=== PATIENT | female | born 1960 | race Caucasian/White ===

== ENCOUNTER → 2019-04-02 | Outpatient (CLI) | payer OTHER, SELFPAY ==
[2019-04-02 09:01] VITALS: BMI 27.0
[2019-04-02 12:54] LABS: Anion Gap 7 (5-15); BUN 15 mg/dL (7-18); BUN/Creat Ratio 17.2 RATIO (10-20); Chloride 103 mmol/L (98-107); Creatinine, Serum 0.87 mg/dL (0.55-1.02); EST Glomerular Filtration Rate 71 mL/min (>60); Est Glom Filt Rate - Afr Amer 86 mL/min (>60); Glucose 109 mg/dL (74-106); Potassium 3.6 mmol/L (3.5-5.1); Sodium Level 140 mmol/L (136-145)
== END | disposition home or self-care (01) ==
LOC: BIMLAB 09:34
PROVIDERS: PCP Internal Medicine; Visit Provider Internal Medicine
DX: I10 Essential (primary) hypertension (principal)
CPT/HCPCS: 36415; 80048

== ENCOUNTER → 2019-04-15 | Outpatient (CLI) | payer OTHER, SELFPAY ==
[2019-04-15 09:42] VITALS: BMI 27.0
--- NOTE | 2019-04-15 09:50 | RAD_ITS ---
STUDY: X-RAY - LEFT SHOULDER REASON FOR EXAM: Left shoulder pain for one year, limited range of motion. TECHNIQUE: 3 view(s) of the shoulder. COMPARISON: None. FINDINGS: Normal glenohumeral articulation. Normal acromioclavicular joint. Normal acromion. There is a chondroid series tumor with calcifications in the humeral head measuring approximately 1.8 cm in length, most suggestive of an enchondroma. The soft tissue structures are unremarkable. Normal visualized pulmonary apex. 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 Otherwise, unremarkable x-ray examination of the left shoulder. Electronically Signed: Rasta James MD at 10:26 EDT Tel , Service support ,
== END | disposition home or self-care (01) ==
LOC: HPRAD 09:49
PROVIDERS: Family Provider Internal Medicine; PCP Internal Medicine; Referring Provider Orthopaedic Surgery; Visit Provider Orthopaedic Surgery
DX: M25.512 Pain in left shoulder (principal)
CPT/HCPCS: 73030

== ENCOUNTER 2019-05-21 09:00 | Outpatient (RCR) | payer OTHER, SELFPAY ==
[2019-04-15 09:42] VITALS: BMI 27.0
--- NOTE | 2019-04-21 09:36 | HP.PTEVAL ---
Patient's Visit Information MADDY BRAGG is a 58 year old F referred to Physical Therapy by Vale Greer DO with a diagnosis of L adhesive capsulitis. Date of Evaluation: 04/21/19 Physical Therapist: Luis Dick PT, ATC - Visit Plan Frequency: 2-3x /Week Duration: 4-6 Weeks Plan: Begin with an aquatic exercise program 2 times per week for 3 weeks, and then progress to land. Rx to consist of L shoulder PROM and mobs, stretching and strengthening (rot cuff), scap stab, UBE, and HEP - Subjective Findings: Pt reports her shoulder has been sore since 2017. Pt reports she was gardening at that time when she attempted to empty a really heavy basket. Pt reports she experienced severe pain at that time. Pt reports she went to her doctor at that time and was referred to an orthopedic surgeon and had an MRI with was negative for any tears. Pt reports she had PT and a cortisone injection which helped for about one year. The pain returned in August of 2018. Pt reports she just recently received another cortisone injection which has not helped. Pt is R hand dominant. No tingling or numbness at this time. Pt reports sleep difficulty secondary to pain. Pt reports she cant reach overhead, and has sig difficulty with washing her hair or applying deoderant to the opposite shoulder. 7/10 pain at rest, 10/10 pain at worst (pushing out of bed to get out of it) - Pain L shoulder pain Pain Intensity (Out of 10): 7 Pain Intensity Range: 10 - Objective Neuro: B UE sensation is WNL to light touch. B bicepital reflex= 2/3. Palpation: Pt is very tender throughout the distribution of the supraspinatus. Minor deformity of the L pec major. ROM: R shoulder flex= 170, abd= 160, ER= 65, IR WNL; L shoulder flex= 75, abd= 55, ER= 15, IR moderately limited. MMT: R UE is 5/5 throughout. L shoulder is 4-/5 and painful in available range. Special test: pos empty can and HK impingement test - Goals Goal 1:: Decrease L shoulder pain x 50% to aid with sleep Goal Time Frame: 4-6 Weeks Goal 2:: Increase L shoulder abd and flex ROM x 40 degrees to aid with overhead lifting Goal Time Frame: 4-6 Weeks Goal 3:: Increase L shoulder strength x 1 grade to aid with IADL's Goal Time Frame: 4-6 Weeks Goal 4:: I with HEP Goal Time Frame: 4-6 Weeks - Rehabilitation Potential Physical Therapy Diagnosis: L shoulder pain, weakness, and limited ROM secondary to L shoulder adhesive capsulitis Rehabilitation Potential: Good - Anticipated Interventions Patient/Client Instruction: Educate patient on: Condition, Plan of Care For the Purpose of:: To improve self management Therapeutic Exercise to Include: Strength training, Postural training, Flexibilty training, In an aquatic setting, Passive ROM, Active ROM, Scapular Strength/Stabilization For the Purpose of:: To decrease pain, To increase ROM, To improve muscle performance and motor function Cryotherapy (ice pack, ice massage): Yes For the Purpose of:: To decrease pain Thank you for the opportunity to evaluate your patient. For Medicare and Medicare HMO plans, please review the plan of care and approve it. It will need to be FAXED BACK to us at [phone] for Medicare purposes. For Medicare only, by signing this I certify the plan of care. Please let me know if there are questions or concerns regarding this plan of care. Physician Signature: Date:
--- NOTE | 2019-05-21 09:52 | HP.PTDCSUM ---
HP - PT D/C Summary It has been my pleasure to treat MADDY BRAGG under orders from Vale Greer DO, for the diagnosis of L adhesive capsulitis for a total of 7 visit(s). Discharge Date: Please see the following information for a summary of their discharge status. - Subjective Subjective: Pt is very frustrated with lack of improvement. - Pain L shoulder pain Pain Intensity (Out of 10): 5 - Overall Improvement % Improvement: 7 - Objective Objective/Function: L shoulder pain ranges from 0-7/10. L shoulder ROM: flex= 90, abd= 70. L shoulder MMT: grossly 3+/5 in available range - Goals Goal 1:: Decrease L shoulder pain x 50% to aid with sleep Goal Progress: Not Progressing Goal 2:: Increase L shoulder abd and flex ROM x 40 degrees to aid with overhead lifting Goal 3:: Increase L shoulder strength x 1 grade to aid with IADL's Goal 4:: I with HEP - Plan Plan: Discontinue secondary to lack of progress, RTD - D/C Information If there are questions or concerns regarding this patient's physical therapy, please feel free to call me at [phone]. Thank you for the referral of this patient. Sincerely, Luis Dick, PT, ATC
== END 2019-05-21 19:00 | disposition home or self-care (01) ==
LOC: PT 09:00
PROVIDERS: Family Provider Internal Medicine; PCP Internal Medicine; Referring Provider Orthopaedic Surgery; Visit Provider Orthopaedic Surgery
DX: M75.02 Adhesive capsulitis of left shoulder (principal)
CPT/HCPCS: 97113; 97161; 97530

== ENCOUNTER → 2019-06-15 17:05 | Outpatient (CLI) | payer OTHER, SELFPAY ==
[2019-06-08 09:08] VITALS: BMI 27.0
--- NOTE | 2019-06-15 17:18 | MRI_ITS ---
STUDY: MRI LEFT SHOULDER REASON FOR EXAM: Left shoulder pain and decreased range of motion, injury almost 2 years ago. TECHNIQUE: Standardized fat and water weighted pulse sequences were obtained in all 3 orthogonal planes. COMPARISON: Radiograph 04/15/2019. FINDINGS: Normal supraspinatus tendon. Normal infraspinatus tendon. Normal subscapularis tendon. Normal teres minor tendon. Normal supraspinatus muscle. There is focal atrophy of the infraspinatus muscle (T2 axial images 10-13; proton density coronal images 13, 14), likely a sequelae of remote muscle tear. There is also mild edema in the proximal infraspinatus muscle (T2 coronal images 12, 13) suggestive of low-grade muscle strain. Normal subscapularis muscle. Normal teres minor muscle. Normal glenohumeral articulation. There is a well-defined chondroid series tumor in the humeral head (T2 coronal images 11-14) measuring approximately 2 cm in length and transverse dimensions without endosteal scalloping or bone edema and therefore likely an enchondroma. Normal biceps labral complex. Normal intracapsular long biceps tendon. Normal labrum. Normal capsulo- ligamentous complex. Normal acromioclavicular articulation. There is a Type II morphology (curved), with a neutral orientation. There is a trace of subacromial-subdeltoid bursal fluid. Normal visualized coracohumeral and coracoacromial ligaments. Normal deltoid muscle. Normal trapezius muscle. MRI/Upper Ext Joint Only(Routine) IMPRESSION: Focal atrophy of the infraspinatus muscle, likely a sequelae of remote muscle tear. Low-grade proximal infraspinatus muscle strain. Chondroid series tumor in the humeral head most suggestive of an enchondroma. Electronically Signed: Rasta James MD at 8:37 EDT Tel , Service support ,
== END ==
PROVIDERS: Family Provider Internal Medicine; PCP Internal Medicine; Referring Provider Orthopaedic Surgery; Visit Provider Orthopaedic Surgery
DX: D16.02 Benign neoplasm of scapula and long bones of left upper limb (principal); M25.512 Pain in left shoulder; G89.29 Other chronic pain
CPT/HCPCS: 73221

== ENCOUNTER → 2019-06-18 | Outpatient (CLI) | payer OTHER, SELFPAY ==
[2019-06-18 13:09] VITALS: BMI 27.0
[2019-06-18 14:43] LABS: T4 Free Direct 0.95 ng/dL (0.76-1.46); Thyroid Stim Hormone (TSH) 0.73 uIU/mL (0.358-3.74)
== END | disposition home or self-care (01) ==
LOC: LAB 13:44
PROVIDERS: Family Provider Internal Medicine; PCP Internal Medicine; Referring Provider Internal Medicine; Visit Provider Internal Medicine
DX: E04.1 Nontoxic single thyroid nodule (principal)
CPT/HCPCS: 36415; 84439; 84443

== ENCOUNTER → 2019-06-28 | Outpatient (CLI) | payer OTHER, SELFPAY ==
[2019-06-18 13:09] VITALS: BMI 27.0
--- NOTE | 2019-06-28 15:28 | US_ITS ---
STUDY: THYROID ULTRASOUND REASON FOR EXAM: Female, 58 years old. Nodule TECHNIQUE: Ultrasound evaluation of the thyroid was performed with real-time and static graham-scale imaging. COMPARISON: None. FINDINGS: RIGHT LOBE: The right lobe of the thyroid gland measures 5.1 x 1.9 x 1.9 cm. There is a heterogeneous echotexture. Within the right-sided thyroid there is inhomogeneous partially vascular nodule measuring 2.1 x 1.4 x 1.6 cm. There is a hypoechoic nodule measuring 1.3 x 1.2 x 1.2 cm. LEFT LOBE: The left lobe of the thyroid gland measures 5.4 x 1.5 x 1.5 cm. There is a heterogeneous echotexture. The left side thyroid gland there is a 6 x 5 x 3 mm nodule, 4 x 3 x 3 mm nodule 5 x 6 x 4 mm nodule. ISTHMUS: The isthmus measures 3 mm . The regional lymph nodes are normal. US/Thyroid IMPRESSION: Enlarged bilateral thyroid glands, thyromegaly. Upper pole Dominant inhomogeneous nodule right thyroid measuring 2.1 x 1.4 x 1.6 cm. Given the dominant appearance of this nodule and inhomogeneity recommend consideration for biopsy in the appropriate clinical setting. Otherwise well-circumscribed similar appearing hypoechoic nodules. Electronically Signed: Jenny Reyez MD at 18:14 EDT Tel , Service support ,
== END | disposition home or self-care (01) ==
LOC: US 15:26
PROVIDERS: Family Provider Internal Medicine; PCP Internal Medicine; Referring Provider Internal Medicine; Visit Provider Internal Medicine
DX: E04.1 Nontoxic single thyroid nodule (principal)
CPT/HCPCS: 76536

== ENCOUNTER → 2019-07-09 | Outpatient (CLI) | payer OTHER, SELFPAY ==
[2019-07-09 14:54] VITALS: BMI 27.0
--- NOTE | 2019-07-09 15:00 | ASPS_PTH ---
PATIENT: MADDY BRAGG LOC: [facility] U#:[id number] AGE/SX: 59/F ROOM: RE07/09/[address]: Dr. Dmitri Jason MD : 1960 BED: DIS: 07/09/2019 SPEC #: [id number] RECD: 07/09/19 15:32 STATUS: JOSE RAUL IVY #: [id number] TORIN: 07/09/19 15:[address]: Dmitri Jason DEPT: CYTOLOGY RECD BY: Nathalia Moser ENTERED: 07/12/19 08:23 SP TYPE: ASPIRATION OTHR DR: Dr. Angélica Murcia MD Tissues: Thyroid gland, NOS Procedures: Special Stain Group II Cytology Other HEADER OPERATION: Ultrasound guided fine needle aspiration, right thyroid PRE-OP DIAGNOSIS: Multinodular goiter TISSUE SUBMITTED: Fine needle aspiration, right thyroid DIAGNOSIS CYTOLOGY Right thyroid nodule, ultrasound-guided FNA (smears): Benign follicular nodule. Adequate for evaluation. See comment. SJ:rg 07/12/19 COMMENT Immediate cytologic evaluation to determine adequacy is not applicable. The findings are suggestive of adenomatoid colloid nodule with mild atypia, favor reactive. Correlation with clinical, radiologic findings and appropriate follow up are necessary. Case has been reviewed in consultation with Dr. Patten who concurs with the above diagnosis. IDC:AM CYTOLOGY STUDY Slides are reviewed. CYTOLOGY GROSS Received are 16 smears labeled with the patient's name and designated per the requisition as FNA right thyroid. Submitted for staining. /CC:cc 07/12/19 TC:5 CPT: 70009
== END | disposition home or self-care (01) ==
LOC: LABSPEC 15:44
PROVIDERS: Family Provider Internal Medicine; PCP Internal Medicine; Referring Provider Surgery; Visit Provider Surgery
DX: E04.2 Nontoxic multinodular goiter (principal)
CPT/HCPCS: 88161; 88313

== ENCOUNTER → 2019-12-23 13:16 | Outpatient (CLI) | payer OTHER, SELFPAY ==
[2019-09-15 17:34] VITALS: BMI 26.6
[2019-12-23 13:46] LABS: Absolute Lymphocyte Count 2.61 X10^3/uL (0.83-4.51); Basophil# 0.09 X10^3/uL; Basophil% 1.1 % (0-1); Eosinophil# 0.14 X10^3/uL; Eosinophils% 1.7 % (0-5); Hematocrit 42.3 % (37-47); Hemoglobin 14.2 g/dL (12.0-15.0); Lymphocyte # 2.61 X10^3/ul (4.0); Lymphocyte % 31.3 % (19-41); Mean Corp Hgb Conc 33.6 g/dL (32-36); Mean Corpuscular Hgb 30.1 pg (27.0-32.0); Mean Corpuscular Volume 89.6 fL (81-99); Mean Platelet Vol. 9.2 fl (6.2-12.0); Monocyte# 0.47 X10^3/uL; Monocyte% 5.6 % (0-10); NRBC Flagged by Analyzer 0 % (0-5); Neutrophil # 4.99 X10^3/uL (2.7-7.7); Neutrophil % 59.9 % (47-70); Platelet Count 254 K/mm3 (150-450); RBC Distribution Width CV 11.6 % (11.6-14.6); RBC Distribution Width SD 37.5 fl (35.1-43.9); Red Blood Count 4.72 M/mm3 (4.2-5.4); White Blood Count 8.3 K/mm3 (4.4-11.0)
[2019-12-23 14:33] LABS: ALB/GLOB Ratio 1.2 RATIO (0.9-2.4); AST(SGOT) 16 U/L (15-37); Alanine Aminotransfer ALT/SGPT 29 U/L (13-56); Albumin, Serum 4.4 g/dL (3.2-5.0); Alkaline Phosphatase 79 U/L (45-117); Anion Gap 8 (5-15); BUN 16 mg/dL (7-18); Calcium,Total 10.1 mg/dL (8.5-10.1); Chloride 102 mmol/L (98-107); Cholesterol 269 mg/dL (200); Creatinine, Serum 0.89 mg/dL (0.55-1.02); EST Glomerular Filtration Rate 69 mL/min (>60); Est Glom Filt Rate - Afr Amer 84 mL/min (>60); Globulin 3.7 g/dL (2.2-4.2); Glucose 103 mg/dL (74-106); High Density Lipoprotein 76 mg/dL; Potassium 3.6 mmol/L (3.5-5.1); Protein, Total 8.1 g/dL (6.4-8.2); Sodium Level 139 mmol/L (136-145); Triglycerides 80 mg/dL; Very Low Density Lipoprotein 16 mg/dL (5-40)
== END ==
PROVIDERS: PCP Internal Medicine; Referring Provider Internal Medicine; Visit Provider Internal Medicine
DX: I10 Essential (primary) hypertension (principal)
CPT/HCPCS: 36415; 80053; 80061; 85025

== ENCOUNTER → 2021-05-16 09:44 | Outpatient (CLI) | payer OTHER, SELFPAY ==
[2021-01-03 16:21] VITALS: BMI 27.5
[2021-05-16 12:15] LABS: Absolute Lymphocyte Count 2.69 X10^3/uL (0.83-4.51); Absolute Neutrophil Count 3.3 X10^3/uL (2.0-7.7); Basophil# 0.07 X10^3/uL; Eosinophil# 0.24 X10^3/uL; Eosinophils% 3.5 % (0-5); Hematocrit 43.5 % (37-47); Hemoglobin 14.6 g/dL (12.0-15.0); Lymphocyte # 2.69 X10^3/ul (0.83-4.51); Lymphocyte % 39.6 % (19-41); Mean Corp Hgb Conc 33.6 g/dL (32-36); Mean Corpuscular Hgb 30.3 pg (27.0-32.0); Mean Corpuscular Volume 90.2 fL (81-99); Mean Platelet Vol. 9.8 fl (6.2-12.0); Monocyte# 0.45 X10^3/uL; Monocyte% 6.6 % (0-10); NRBC Flagged by Analyzer 0 % (0-5); Neutrophil # 3.32 X10^3/uL (2.7-7.7); Platelet Count 279 K/mm3 (150-450); RBC Distribution Width CV 11.5 % (11.6-14.6); Red Blood Count 4.82 M/mm3 (4.2-5.4); White Blood Count 6.8 K/mm3 (4.4-11.0)
[2021-05-16 12:39] LABS: ALB/GLOB Ratio 1.2 RATIO (0.9-2.4); AST(SGOT) 14 U/L (15-37); Alanine Aminotransfer ALT/SGPT 21 U/L (13-56); Albumin, Serum 4.3 g/dL (3.2-5.0); Alkaline Phosphatase 89 U/L (45-117); Anion Gap 8 (5-15); BUN 20 mg/dL (7-18); Calcium,Total 9.6 mg/dL (8.5-10.1); Chloride 101 mmol/L (98-107); Cholesterol 294 mg/dL (200); EST Glomerular Filtration Rate 60 mL/min (>60); Est Glom Filt Rate - Afr Amer 73 mL/min (>60); Globulin 3.5 g/dL (2.2-4.2); Glucose 107 mg/dL (74-106); High Density Lipoprotein 64 mg/dL; Potassium 3.5 mmol/L (3.5-5.1); Protein, Total 7.8 g/dL (6.4-8.2); Sodium Level 138 mmol/L (136-145); Triglycerides 92 mg/dL; Very Low Density Lipoprotein 18 mg/dL (5-40)
== END ==
PROVIDERS: PCP Internal Medicine; Referring Provider Internal Medicine; Visit Provider Internal Medicine
DX: I10 Essential (primary) hypertension (principal)
CPT/HCPCS: 36415; 80053; 80061; 85025

== ENCOUNTER 2022-10-31 10:00 | Outpatient (RCR) | payer OTHER, SELFPAY ==
--- NOTE | 2022-09-10 09:23 | HP.OTEVAL ---
Patient's Visit Information MADDY BRAGG is a 62 year old F, referred to Occupational Therapy by Dr. Ephraim Cochran MD, with a diagnosis of CTS. Date of Evaluation: 09/10/22 Occupational Therapist: Nataliya hCoi, OTR/Ten, CHT - Subjective This 62 year old female was seen for OT eval with dx of right CTS and following CTR on 2021. pt states since sx she has had difficulty with the ability to make a fist and hand continues to have swelling- pt is right handed-. pt states prior to sx she was having difficulty with tingling when gardening and tingling at night this past summer. pt works at [employer]. pt also reports she is having difficulty raising her right arm over her head- has pain pointing to her shoulder anterior deltoid down her biceps along with reported right elbow pain- pt is wondering if her nerve is related to her limitations of her shoulder- due to her recent sx and difficulty with edema of right hand pain and weakness pt is limited with all ADls and IADLs at this time. - Pain right hand 0 Pain Intensity Range: 8 - ROM Shoulder: right shoulder 90* left 150 Elbow: right/l WNL Wrist: right 45/25 left 60/50 ROM Comments: right RD [address] 15 UD 20 - Strength Lining Feller Blindstitch: right 5# left 45# Lateral Pinch: right 2# left 6# Tripod Pinch: right unable left 4# - Edema Other: MCP circumference 18.5cm - Sensation Thumb: right 3.22 left 2.83 Index: right 2.83 left 2.83 Middle: right 2.83 left 2.83 Ring: right 2.83 left 2.83 Little: right 2.83 left 2.83 - Quick DASH-Disab of Arm,Shoulder& Hand Quick DASH Score: 48.3325 - Goals Goal:Daily scar massage when approriate: Yes Goal:ROM equal to unaffected hand: Yes Goal:Lining Feller Blindstitch/Pinch strength at least 75% of unaffected hand: Yes Goal:No pain with affected hand use: Yes Goal:Full use of affected hand in daily activities including: Yes Goal:Improvement in sensation documented by Patten-Micheal: Yes Goal:Decrease scar hypersensitivity: Yes - Rehabilitation General Assessment: pt arrives to OT s/p 2 weeks and 3 days s from right endoscopic CTR. pt demo with swelling- bruising at hypothenar region limited ability to form a composite fist, pain and weakness has increased pts need of assistance with ADLs and IADLs. Pt would benefit from skilled OT services 2-3x week for 4-6 weeks to return pt to PLOF. Today therapist ed. pt on tendon glide ex, wrist AROM/PROM, scar mtg and edema control. Rehabilitation Potential: Good - Anticipated Interventions A/AAROM/PROM, Strengthening, Edema Control, Scar Care, Triggerpoint Release, Sensory Retraining, Modalities, Orthoses, Joint Protection/Energy Conservation, Ergonomic Education, Fine Motor Coord/Facundo, Education re assistive Equipment, Education re Diagnosis, Home Program - Visit Plan Frequency: 2-3x /Week Duration: 6 Weeks TEXT: Thank you for the opportunity to evaluate your patient. For Medicare and Medicare HMO plans, please review the plan of care and approve it. It will need to be FAXED BACK to us at [phone] for Medicare purposes. Please let me know if there are questions or concerns regarding this plan of care. Physician Signature: Date:
--- NOTE | 2022-09-30 09:31 | OTREVAL_ITS ---
Dr. Ephraim Cochran MD, It has been my pleasure to treat MADDY BRAGG over the last 6 visits for CTS. Please see the progress note below for an update on the occupational therapy plan of care! Subjective: pt arrives to OT states she feels she does not have function back in her hand due to pain and weakness- tingling is gone- states Tip of MF is numb- pt states she continues to have swelling on and off. pt reports she has returned to performing ADLs and IADLs at 50% of her ability- pain limits her with tasks. Objective/Function: pt wearing wrist brace with gel padding-. using compression glove as needed to decrease edema-. pt is performing PROM/AROM and performing her scar mtg. along with tendon glides . pt is attempting to use right hand with daily tasks- pt states wrist flexion is limiting her with daily use and pain-. right wrist ROM 45/30 (pain 4-5/10) with flexion. right low altitude air defense gunner strength 10# down from 15# (testing 09/23/22). right lateral pinch 6#. right tripod 4#. pt does point to pain at base of thumb CMC region (feels painful there but pt states pain just varies). pt states right MF is only finger that is numb but test at 2.83 monofilament indicating normal sensation however with touch feels numb at very tip-. therapy has also included pt with stress loading and PRE as tolerated. pt continues to struggle with recovery from CTR please assess and advise if you would want a change in POC. Plan Frequency: 2-3x /Week Duration: 4 Weeks Plan: cont to increase strength as tolerated Goals - Goals Patient Goals: Regain Mobility, Regain Strength, Decrease Pain, Use Hand/Wrist/Arm Normally Again, Be More Independent in ADLS Goal:Daily scar massage when approriate: Yes Goal:ROM equal to unaffected hand: Yes Goal:Seed Yeast Operator/Pinch strength at least 75% of unaffected hand: Yes Goal:No pain with affected hand use: Yes Goal:Full use of affected hand in daily activities including: Yes Goal:Improvement in sensation documented by [place]-Micheal: Yes Goal:Decrease scar hypersensitivity: Yes Anticipated Interventions Anticipated Interventions: A/AAROM/PROM, Strengthening, Edema Control, Scar Care, Triggerpoint Release, Sensory Retraining, Modalities, Orthoses, Joint Protection/Energy Conservation, Ergonomic Education, Fine Motor Coord/Facundo, Education re assistive Equipment, Education re Diagnosis, Home Program Please do not hesitate to contact me at [phone] by phone or if you have questions or concerns regarding this new plan of care! Sincerely, Nataliya Choi, OTR/L, CHT
--- NOTE | 2022-10-31 10:30 | HP.OTREVAL ---
Dr. Ephraim Cochran MD, It has been my pleasure to treat MADDY BRAGG over the last 15 visits for CTS. Please see the progress note below for an update on the occupational therapy plan of care! Subjective: pt arrives to therapy concerns with continued hand/joint swelling and stiffness. use of hand yesterday with cleaning and daily tasks. notice increase difficulty with closing hand due to joint stiffness. pt returning to performing ADLs as much as possible- weakness limited ROM and limited ability to form tight fist is difficulty and still cause limited use. Objective/Function: right wrist ROM 55/40. right crate builder strength 20#. right lateral pinch 6#. right tripod pinch 4#. edema PIP MF circum 6. edema circ mcp 17.5 circ. a decrease from 18.5. right wrist circumference 15.5cm left 15cm. pt is currently .5 away from composite fist. swelling in carpal region. pt making gains but continues to have edema in AM and joint stiffness limiting composite fist for until mid morning. This increases pts difficulty with ADLs. pt is using compression glove and use warm water to loosen joints in am. Therapy is working on edema, strength and return to use. denies tingling and numbness. Joint stiffness most of her concern Plan Frequency: 2-3x /Week Duration: 4 Weeks Visits in this POC: (6 weeks- 2-3x week) Plan: cont to increase strength as tolerated Goals - Goals Patient Goals: Regain Mobility, Regain Strength, Decrease Pain, Use Hand/Wrist/Arm Normally Again, Be More Independent in ADLS Goal:Daily scar massage when approriate: Yes Goal:ROM equal to unaffected hand: Yes Goal:Assistant Clinical Nurse Manager/Pinch strength at least 75% of unaffected hand: Yes Goal:No pain with affected hand use: Yes Goal:Full use of affected hand in daily activities including: Yes Goal:Improvement in sensation documented by [place]-Micheal: Yes Goal:Decrease scar hypersensitivity: Yes Anticipated Interventions Anticipated Interventions: A/AAROM/PROM, Strengthening, Edema Control, Scar Care, Triggerpoint Release, Sensory Retraining, Modalities, Orthoses, Joint Protection/Energy Conservation, Ergonomic Education, Fine Motor Coord/Facundo, Education re assistive Equipment, Education re Diagnosis, Home Program Please do not hesitate to contact me at [phone] by phone or if you have questions or concerns regarding this new plan of care! Sincerely, Nataliya Choi, OTR/L, CHT
--- NOTE | 2022-11-21 14:10 | HP.OT.NRP ---
MADDY BRAGG was seen in my office for initial evaluation on 09/10/22. The following Plan of Care was established for this patient: Initial Frequency: 2-3x /Week Initial Duration: 4 Weeks Plan: cont to increase strength as tolerated Anticipated Interventions: A/AAROM/PROM, Strengthening, Edema Control, Scar Care, Triggerpoint Release, Sensory Retraining, Modalities, Orthoses, Joint Protection/Energy Conservation, Ergonomic Education, Fine Motor Coord/Facundo, Education re assistive Equipment, Education re Diagnosis, Home Program This patient was last seen in our office 10/31/22. Pertinent comments regarding their Occupational therapy will appear below: pt called to let therapist know the Dr. pittman put her on prednisone and she has is doing great. pt currently has no further apts. scheduled. Pt is d/c with HEP. At this point I will be discontinuing this patient from occupational therapy. I would be happy to see this patient again in the future if found appropriate by the physician. Thank you! Nataliya Choi, OTR/L, CHT
== END 2022-10-31 19:00 | disposition home or self-care (01) ==
LOC: OT 10:00
PROVIDERS: PCP Internal Medicine; Referring Provider Orthopaedic Surgery Hand Surgery; Visit Provider Orthopaedic Surgery Hand Surgery
DX: G56.01 Carpal tunnel syndrome, right upper limb (principal)
CPT/HCPCS: 97035; 97110; 97140; 97166; 97530